=== PATIENT | female | born 1990 | race African-American/Black ===

== ENCOUNTER 2019-03-04 12:58 | Inpatient (IN) ==
[2019-03-04] MEDS ORDERED: LORazepam 2 MG/1 ML VIAL IV ONE (14:25)
[2019-03-04] MEDS ORDERED: ONDANSETRON 4 MG/2 ML VIAL IV PRN ×2 (14:40→18:01)
[2019-03-04] MEDS ORDERED: LACTATED RINGERS 1,000 ML IV SCH ×3 (15:00→18:30)
[2019-03-04] MEDS ORDERED: LORazepam 2 MG/1 ML VIAL IV SCH (15:00)
[2019-03-04 15:12] LABS: Basophils # 0.1 10*3/uL (0.0-0.2); Basophils % 0.5 % (0.0-0.8); Eosinophils # 0.4 10*3/uL (0.0-0.87); Eosinophils % 3.1 % (0.00-10.9); Hematocrit 32.8 VOL% (35.7-47.0); Immature Granulocytes % 0.5 %; Immature Granulocytes Absolute 0.06 #; Lymphocytes % 26.1 % (21.3-54.2); Mean Corpuscular HGB Conc 33.5 GM/DL (32-36); Mean Corpuscular Volume 96.5 FL (87-102); Mean Platelet Volume 11.2 FL (9.6-12.0); Neutrophils % 62.8 % (38.7-73.9); Platelet Count 289 T/CUMM (130-400); Red Cell Distribution Width 13.4 % (9.3-17.3); White Blood Count 11.4 T/CUMM (4-12)
[2019-03-04] MEDS ORDERED: FAMOTIDINE 20 MG/2 ML VIAL IV ONE (15:22)
[2019-03-04] MEDS ORDERED: CITRIC ACID/SODIUM CITRATE 30 ML UDCUP PO ONE (15:22)
[2019-03-04 15:32] LABS: Alanine Aminotransferase 36 U/L (13-56); Albumin 3.4 G/DL (3.4-5.0); Alkaline Phosphatase 255 U/L (45-117); Aspartate Amino Transferase 31 U/L (0-37); Bilirubin,Total < 0.39 MG/DL (0.2-1.0); Blood Urea Nitrogen 11 MG/DL (7-18); Calcium 8.9 MG/DL (8.5-10.1); Estimated Glom Filtration Rate 165 ML/MIN; Glucose 74 MG/DL (74-106); Osmolality,Calculated 272.7 MOS/KG (273-304); Total Protein 7.9 G/DL (6.4-8.3); Uric Acid 2.7 MG/DL (2.6-6.0)
[2019-03-04 15:51] LABS: Rubella Antibody IgG > 500.0 IU/ML
[2019-03-04] MEDS ORDERED: ceFAZolin 2,000 MG in PREMIX 1 EACH IV ONE ×2 (16:00→17:30)
[2019-03-04] MEDS ORDERED: OXYTOCIN 10 UNIT/ML VIAL IM ONE (16:09)
[2019-03-04] MEDS ORDERED: OXYTOCIN/LR 30 UNIT/1,000 ML BAG IV ONE (16:09)
[2019-03-04 16:12] LABS: Apearance,Urine CLEAR (Clear); Bacteria,Urine Many /HPF (Few); Bilirubin,Urine Negative (Negative); Blood, Urine Negative (Negative); Glucose,Urine (UA) Negative (Negative); Hyaline Casts,Urine 1 /LPF (0-3); Ketones,Urine Negative (Negative); Mucus,Urine Occasional /LPF (Occasional); Nitrite,Urine Negative (Negative); Protein,Urine Negative; Squamous Epithelial Cell,Urine Occasional /HPF (0-10); Urine Color Yellow (Yellow); Urine Specific Gravity 1.009 (1.001-1.035); Urine Urobilinogen < 2.0 EU/DL (0.2-1.0); WBC,Urine 2 /HPF (0-6)
[2019-03-04 16:22] LABS: Barbiturates Screen,Urine Negative (Negative); Benzodiazepines Screen,Urine Negative (Negative); Cannabinoid Screen,Urine Positive (Negative); Opiate Screen,Urine Negative (Negative); Phencyclidine Screen,Urine Negative (Negative)
[2019-03-04] MEDS ORDERED: GLYCOPYRROLATE 0.4 MG/2 ML VIAL ONE (17:59)
[2019-03-04] MEDS ORDERED: MIDAZOLAM 2 MG/2 ML VIAL ONE (17:59)
[2019-03-04] MEDS ORDERED: PROPOFOL 200 MG/20 ML VIAL IV ONE (18:00)
[2019-03-04] MEDS ORDERED: SUCCINYLCHOLINE 200 MG/10 ML VIAL ONE (18:00)
[2019-03-04] MEDS ORDERED: LIDOCAINE 2% 5 ML VIAL ONE (18:00)
[2019-03-04] MEDS ORDERED: ACETAMINOPHEN 325 MG TABLET PO PRN (18:01)
[2019-03-04] MEDS ORDERED: DEXAMETHASONE 4 MG/1 ML VIAL ONE (18:01)
[2019-03-04] MEDS ORDERED: MAGNESIUM HYDROXIDE SUSP 30 ML UDCUP PO PRN (18:01)
[2019-03-04] MEDS ORDERED: RHO(D) IMMUNE GLOBULIN 300 MCG SYRINGE IM ONE (18:01)
[2019-03-04] MEDS ORDERED: OXYTOCIN/LR 20 UNIT/1,000 ML BAG IV ONE (18:01)
[2019-03-04] MEDS ORDERED: SIMETHICONE CHEW 80 MG TABLET PO PRN (18:01)
[2019-03-04] MEDS ORDERED: ROCURONIUM 100 MG/10 ML VIAL IV ONE (18:01)
[2019-03-04] MEDS ORDERED: fentaNYL 100 MCG/2 ML VIAL ONE (18:02)
[2019-03-04] MEDS: IBUPROFEN 800 MG TABLET PO PRN (19:25)
[2019-03-04] MEDS: levETIRAcetam 500 MG TABLET PO SCH (20:40)
[2019-03-04] MEDS: DOCUSATE SODIUM 100 MG CAPSULE PO SCH (22:00)
[2019-03-05] MEDS: ceFAZolin 1,000 MG in SYRINGE 1 EACH IV SCH ×2 (01:12→08:35)
[2019-03-05 05:03] LABS: Basophils # 0.1 10*3/uL (0.0-0.2); Basophils % 0.3 % (0.0-0.8); Eosinophils # 0.1 10*3/uL (0.0-0.87); Eosinophils % 0.7 % (0.00-10.9); Hematocrit 27.1 VOL% (35.7-47.0); Hemoglobin 9.2 GM/DL (12.0-16.0); Immature Granulocytes % 0.5 %; Immature Granulocytes Absolute 0.08 #; Lymphocytes # 1.8 10*3/uL (1.4-4.0); Lymphocytes % 11.7 % (21.3-54.2); Mean Corpuscular HGB Conc 33.9 GM/DL (32-36); Mean Corpuscular Volume 94.8 FL (87-102); Mean Platelet Volume 10.5 FL (9.6-12.0); Monocytes % 7.1 % (1.7-12.7); Neutrophils % 79.7 % (38.7-73.9); Platelet Count 251 T/CUMM (130-400); Red Blood Count 2.86 MC/CUMM (3.8-5.5); Red Cell Distribution Width 13.2 % (9.3-17.3); White Blood Count 15.3 T/CUMM (4-12)
[2019-03-05] MEDS: levETIRAcetam 500 MG TABLET PO SCH ×2 (08:36→21:22)
[2019-03-05] MEDS: MULTIVITAMIN (PRENATAL) TABLET PO SCH (08:36)
[2019-03-05] MEDS: DOCUSATE SODIUM 100 MG CAPSULE PO SCH ×2 (08:37→21:22)
[2019-03-05] MEDS ORDERED: MULTIVITAMIN (PRENATAL) TABLET PO SCH (09:00)
[2019-03-05] MEDS: SERTRALINE 50 MG TABLET PO SCH (13:33)
[2019-03-05] MEDS: IBUPROFEN 800 MG TABLET PO PRN (13:37)
[2019-03-06] MEDS: SERTRALINE 50 MG TABLET PO SCH (09:43)
[2019-03-06] MEDS: MULTIVITAMIN (PRENATAL) TABLET PO SCH (09:43)
[2019-03-06] MEDS: levETIRAcetam 500 MG TABLET PO SCH (09:43)
[2019-03-06] MEDS: DOCUSATE SODIUM 100 MG CAPSULE PO SCH (09:43)
[2019-03-06] MEDS: IBUPROFEN 800 MG TABLET PO PRN (11:36)
[2019-03-06 12:33] VITALS: BP 138/89
== END 2019-03-06 12:25 | disposition home or self-care (01) | DRG 540 ==
LOC: N.LDOUT 12:58 → N.OB 13:00 → N.LD 13:00
PROVIDERS: ADMIT Obstetrics & Gynecology; ATTEND Obstetrics & Gynecology
PROC: LDCSECT (ICD-10-PCS; 2019-03-04 17:00)